=== PATIENT | female | born 1945 | race Hispanic/Latino ===

== ENCOUNTER 2017-08-25 07:00 | Observation (INO) | payer MEDICARE ==
[2017-08-19 11:06] LABS: BASOPHILS % (AUTO) 1.3 % (0.0-5.0); EOSINOPHILS % (AUTO) 4.9 % (0.0-8.0); HEMATOCRIT 41.8 % (36-48); LYMPHOCYTES % (AUTO) 24.9 % (21.0-51.0); MEAN CORPUSCULAR HEMOGLOBIN 29.7 pg (27.0-33.0); MEAN CORPUSCULAR HGB CONC 33.8 g/dL (32.0-36.0); MONOCYTES % (AUTO) 9.9 % (3.0-13.0); PLATELET COUNT (AUTO) 235 K/uL (130-400); RED BLOOD CELL COUNT(AUTO) 4.75 MIL/uL (4.00-5.50); RED CELL DISTRIBUTION WIDTH 15.3 % (11.0-15.5)
[2017-08-19 11:07] VITALS: BP 138/66
[2017-08-19 11:13] LABS: APPEARANCE,URINE Clear (CLEAR); BILIRUBIN,URINE Negative (NEGATIVE); COLOR,URINE Yellow (YELLOW); GLUCOSE, URINE (UA) >=1000 mg/dL (NEGATIVE); KETONES,URINE Negative (NEGATIVE); LEUKOCYTE ESTERASE ,URINE Negative (NEGATIVE); NITRATE,URINE Negative (NEGATIVE); OCCULT BLOOD,URINE Negative (NEGATIVE); PH,URINE 5.5 (5.0-8.0); PROTEIN,URINE Negative (NEGATIVE); UROBILINOGEN,URINE 0.2 mg/dL (0.2-1.0)
[2017-08-19 11:25] LABS: BACTERIA,URINE Rare /HPF (None Seen); RBC,URINE 0-1 /HPF (0-1); SQUAMOUS EPITHELIAL CELL,UR Rare /HPF (0-2)
[2017-08-19 11:26] LABS: CREATININE 0.8 mg/dL (0.5-1.5)
[2017-08-19 11:38] LABS: INR 0.92 (0.85-1.15); PARTIAL THROMBOPLASTIN TIME 26.8 SEC (26.3-35.5); PROTHROMBIN TIME 9.7 SEC (9.6-11.6)
[2017-08-25] VITALS (14 sets, daily range): BP systolic 109–138; BP diastolic 56–68
[~2017-08-25] VITALS: Ht 162.6 cm; Wt 87.6 kg
[~2017-08-25 07:00] MED LIST: AMLO10TA2 PO; ASPI-1005 PO; BEPO10DR OP; CLOP75TA14 PO; DAPA10TA PO; EXEN2PEN SQ; EXEN2VIA SQ; EZET10 PO; IBAN150T PO; LOSA1TAB42 PO; METF10004 PO; PANT40TA25 PO; PRIM50TA29 PO; PROP40TA7 PO; SYSTANE OU
[2017-08-25] MEDS ORDERED: HEPARIN SODIUM 1000UNIT/ML 10ML VIAL ONE (07:21)
[2017-08-25] MEDS ORDERED: MEPERIDINE-PF 25 MG/ML SYG ONE ×2 (07:21→08:51)
[2017-08-25] MEDS ORDERED: NITROGLYCERIN 5 MG/ML 10 ML VIAL IV ONE (07:21)
[2017-08-25] MEDS ORDERED: LIDOCAINE HCL 1% 20 ML VIAL ONE (07:21)
[2017-08-25] MEDS ORDERED: MIDAZOLAM HCL 1 MG/ML 2ML VIAL ONE ×2 (07:21→08:51)
[2017-08-25] MEDS ORDERED: SODIUM BICARB 50MEQ 50ML VIAL ONE (07:22)
[2017-08-25] MEDS ORDERED: ISOVUE-370 50ML VIAL IV ONE ×2 (07:24→08:46)
[2017-08-25] MEDS ORDERED: IOPAMIDOL-370 100 ML VIAL IV ONE (07:24)
[2017-08-25] MEDS: SODIUM CHLORIDE 0.9% 1000ML 1,000 ML IV SCH (09:33)
[2017-08-25] MEDS ORDERED: TICAGRELOR 90 MG TABLET ONE (09:40)
[2017-08-25] MEDS ORDERED: NITROGLYCERIN 50 MG/D5% WATER 1 BOT IV PRN (09:45)
[2017-08-25] MEDS ORDERED: ONDANSETRON HCL 4 MG/2 ML VIAL IVP PRN (09:45)
[2017-08-25] MEDS ORDERED: DEXTROSE 50%-WATER 50 ML DISP.SYRIN IV PRN (09:45)
[2017-08-25] MEDS ORDERED: ACETAMINOPHEN-CODEINE 300/30MG TAB PO PRN (09:45)
[2017-08-25] MEDS ORDERED: GLUCAGON 1MG KIT 1 MG ML IM PRN (09:45)
[2017-08-25] MEDS ORDERED: TEMAZEPAM 30 MG CAP PO PRN (09:45)
[2017-08-25] MEDS ORDERED: SIMV20TA6 PO (09:52)
[2017-08-25 10:38] LABS: CHOLESTEROL 164 mg/dL (<200); HDL CHOLESTEROL 64 mg/dL (35-85); LDL DIRECT 89 mg/dL (0-99); TRIGLYCERIDES 64 mg/dL (30-200)
[2017-08-25] MEDS: INSULIN HUMULIN R 100 UNIT/ML 3ML SQ SCH ×3 (11:30→21:41)
[2017-08-25] MEDS ORDERED: PRIMIDONE 50 MG TAB PO SCH (21:00)
[2017-08-25] MEDS ORDERED: TICAGRELOR 90 MG TABLET PO SCH (21:00)
[2017-08-25] MEDS ORDERED: ATORVASTATIN CALCIUM 20 MG TABLET PO SCH (21:00)
[2017-08-25] MEDS: PROPRANOLOL HCL 20 MG TAB PO SCH (21:40)
[2017-08-26 03:26] LABS: HEMATOCRIT 36.8 % (36-48); MEAN CORPUSCULAR HEMOGLOBIN 29.6 pg (27.0-33.0); MEAN CORPUSCULAR HGB CONC 33.8 g/dL (32.0-36.0); MEAN CORPUSCULAR VOLUME 87.6 fL (79-99); NUCLEATED RED BLOOD CELLS 0.1 % (0.0-0.19); PLATELET COUNT (AUTO) 188 K/uL (130-400); RED BLOOD CELL COUNT(AUTO) 4.21 MIL/uL (4.00-5.50); WHITE BLOOD COUNT (AUTO) 5.8 K/uL (4.8-10.8)
[2017-08-26 03:31] LABS: CREATININE 0.9 mg/dL (0.5-1.5); POTASSIUM 3.8 mmol/L (3.5-5.1)
[2017-08-26 04:01] VITALS: BP 110/57
[2017-08-26] MEDS: SODIUM CHLORIDE 0.9% 1000ML 1,000 ML IV SCH (05:33)
[2017-08-26] MEDS: INSULIN HUMULIN R 100 UNIT/ML 3ML SQ SCH (05:53)
[2017-08-26 07:00] VITALS: BP 124/59
[2017-08-26] MEDS: PROPRANOLOL HCL 20 MG TAB PO SCH (08:59)
[2017-08-26] MEDS ORDERED: CLOPIDOGREL BISULFATE 75 MG TAB PO SCH (09:00)
[2017-08-26] MEDS ORDERED: BEPOTASTINE OP SCH (09:00)
[2017-08-26] MEDS ORDERED: LOSARTAN 100 MG TABLET PO SCH (09:00)
[2017-08-26] MEDS ORDERED: HYDROCHLOROTHIAZIDE 25 MG TABLET PO SCH (09:00)
[2017-08-26] MEDS ORDERED: SYSTANE OU SCH (09:00)
[2017-08-26] MEDS ORDERED: PANTOPRAZOLE SODIUM 40 MG TABLET.DR PO SCH (09:00)
[2017-08-26] MEDS ORDERED: ASPIRIN 81MG TAB.CHEW PO SCH (09:00)
[2017-08-26] MEDS ORDERED: AMLODIPINE BESYLATE 5 MG TAB PO SCH (09:00)
[2017-08-26] MEDS ORDERED: **HM** FARXIGA 10MG PO SCH (09:00)
[2017-08-27] MEDS ORDERED: CLOPIDOGREL BISULFATE 75 MG TAB PO SCH (09:00)
== END 2017-08-26 10:35 | disposition home or self-care (01) ==
LOC: DAH 07:00 → DAHIP 07:01 → 2AH 14:27
PROVIDERS: ADMIT Internal Medicine; ATTEND Internal Medicine
DX: I25.110 Atherosclerotic heart disease of native coronary artery with unstable angina pectoris (principal); E11.9 Type 2 diabetes mellitus without complications; I10 Essential (primary) hypertension; I44.7 Left bundle-branch block, unspecified; E78.5 Hyperlipidemia, unspecified; K21.9 Gastro-esophageal reflux disease without esophagitis; Z83.3 Family history of diabetes mellitus; Z82.3 Family history of stroke
CPT/HCPCS: 36415 ×3; 80048 ×2; 80061; 81001; 82948 ×5; 85025; 85027; 85347 ×2; 85610; 85730; 92978; 93005; 93458; A4606; C1753; C1760; C1769 ×2; C1874; C1887 ×2; C1894 ×2; C9600; G0378 ×28; J1644; J1815; J2175 ×2; J2250 ×2; J3490 ×2; Q9967 ×2; 99156; 99157